=== PATIENT | male | born 1955 | race Caucasian/White ===

== ENCOUNTER 2018-06-06 06:32 | Day surgery (SDC) | payer BC ==
[~2018-06-06 06:32] MED LIST: Lactated Ringers 1,000 ML IV SCH
[2018-06-06] MEDS ORDERED: Propofol 200 MG/20 ML SDV ONE (08:59)
[2018-06-06] MEDS ORDERED: fentaNYL 100 MCG/2 ML SDV ONE (08:59)
--- NOTE | 2018-06-06 09:41 | OR ---
PREOPERATIVE DIAGNOSES: 1. History of polyps. 2. Family history of colon cancer. POSTOPERATIVE DIAGNOSES: Normal colonoscopic exam. PROCEDURE PROPOSED/PROCEDURE DONE: Total flexible colonoscopy. INDICATION: This is a 63-year-old gentleman who comes in for colonic surveillance due to family history of some sisters with colon cancer and also personal history of polyps. He has had 1 previous colonoscopic exam. TECHNIQUE: The patient brought to the endoscopy suite and placed in a left lateral decubitus position. He was sedated per [employer] with propofol. The flexible video colonoscope was then passed transanally and under visualization advanced to the cecum. Examination revealed normal ascending, transverse, descending, sigmoid, and rectal colon. There was no evidence of any diverticulosis, polyps, colitis, or other abnormalities and the scope was then withdrawn. The patient tolerated the procedure well. FINAL IMPRESSION: 1. Essentially normal colonoscopic exam. 2. Personal history of polyps. 3. Family history of colon cancer - sister. PLAN: He should continue colonic surveillance every 5 years hereafter. SCM: 06/06/2018 09:18:27 MODL: 06/06/2018 09:36:10 /[id number]
== END 2018-06-06 10:25 | disposition home or self-care (01) ==
LOC: VM.SDS 06:32
PROVIDERS: ATTEND Surgery
DX: Z12.11 Encounter for screening for malignant neoplasm of colon (principal); I10 Essential (primary) hypertension; E11.9 Type 2 diabetes mellitus without complications; E73.9 Lactose intolerance, unspecified; F17.210 Nicotine dependence, cigarettes, uncomplicated; R97.20 Elevated prostate specific antigen [PSA]; Z86.010 Personal history of colon polyps; Z80.0 Family history of malignant neoplasm of digestive organs; Z79.84 Long term (current) use of oral hypoglycemic drugs; Z79.82 Long term (current) use of aspirin; Z79.899 Other long term (current) drug therapy
CPT/HCPCS: 00811; 82962; J2704; J3010; J7120

== ENCOUNTER 2022-08-29 19:27 | Emergency (ER) | payer BC, MEDICARE, OTHER ==
[2022-08-29] MEDS ORDERED: Lidocaine 1% 30 ML SDV INJECT ONE (19:38)
[2022-08-29] MEDS ORDERED: Sodium Chloride 0.9% 10 ML Syringe FLUSH PRN (19:52)
[2022-08-29] MEDS ORDERED: ceFAZolin 1 GM Vial IVPUSH ONE (19:53)
== END 2022-08-29 20:56 | disposition short-term general hospital (02) ==
LOC: VM.ED 19:27
DX: S61.204A Unspecified open wound of right ring finger without damage to nail, initial encounter (principal); S62.634A Displaced fracture of distal phalanx of right ring finger, initial encounter for closed fracture; I10 Essential (primary) hypertension; E11.9 Type 2 diabetes mellitus without complications; F17.210 Nicotine dependence, cigarettes, uncomplicated; Y29.XXXA Contact with blunt object, undetermined intent, initial encounter
CPT/HCPCS: 64450; 73140-F8; 96374; 99283; 99284-25; J0690; J3490

== ENCOUNTER 2023-10-31 07:17 | Day surgery (SDC) | payer MEDICARE ==
[2023-10-31] MEDS: Lactated Ringers 1,000 ML IV SCH (07:31)
[2023-10-31 07:51] LABS: GLUCOSE,POC 154 mg/dL (70-99)
[2023-10-31] MEDS ORDERED: Propofol 200 MG/20 ML SDV ONE (08:14)
[2023-10-31] MEDS ORDERED: fentaNYL 100 MCG/2 ML SDV ONE (08:15)
== END 2023-10-31 09:45 | disposition home or self-care (01) ==
LOC: VM.SDS 07:17
PROVIDERS: ATTEND Family Medicine
DX: Z12.11 Encounter for screening for malignant neoplasm of colon (principal); D12.4 Benign neoplasm of descending colon; K52.9 Noninfective gastroenteritis and colitis, unspecified; I10 Essential (primary) hypertension; E11.9 Type 2 diabetes mellitus without complications; G47.33 Obstructive sleep apnea (adult) (pediatric); E78.5 Hyperlipidemia, unspecified; Z79.82 Long term (current) use of aspirin; Z79.899 Other long term (current) drug therapy; Z79.84 Long term (current) use of oral hypoglycemic drugs; Z86.010 Personal history of colon polyps; Z80.0 Family history of malignant neoplasm of digestive organs; Z87.891 Personal history of nicotine dependence
CPT/HCPCS: 00811; 82947; 88305; J2704; J3010; J7120